=== PATIENT | male | born 1975 | race Two or more races ===

== ENCOUNTER 2023-05-25 17:20 | Emergency (ER) | payer SELFPAY ==
[~2023-05-25] VITALS: Ht 170.2 cm; Wt 86.3 kg
[2023-05-25] MEDS ORDERED: SODIUM CHLORIDE 0.9% 1,000 ML IVB ONE (17:45)
[2023-05-25 17:58] VITALS: BP 112/77; PULSE 104; RESP 18; O2SAT 98
[2023-05-25 18:24] LABS: Basophils # (auto) 0 10 ^3/uL (0-0.2); Basophils % (auto) 0.2 % (0.0-2.0); Eosinophils # (auto) 0 10 ^3/uL (0-0.8); Lymphocytes # (auto) 0.5 10 ^3/uL (0.4-5.4); Monocytes # (auto) 1.5 10 ^3/uL (0-1.3)
[2023-05-25 18:26] LABS: Eosinophils % (auto) 0.1 % (0.0-7.0); Hematocrit 51.5 % (41.0-53.0); Hemoglobin 17.6 g/dL (13.5-17.5); Lymphocytes % (auto) 3.8 % (10.0-50.0); Mean Corpuscular Hemoglobin 33.2 pg (28.0-32.0); Mean Corpuscular Hgb Conc. 34.2 g/dL (32.0-36.0); Monocytes % (auto) 10.7 % (0.0-12.0); Neutrophils % (auto) 85.2 % (37.0-80.0); Red Blood Cells 5.31 10^6/uL (4.5-5.90); Red Cell Distribution Width 13.3 % (11.8-14.3); White Blood Cell 14.1 10^3/uL (4.4-10.8)
[2023-05-25 18:31] LABS: Chloride 109 mmol/L (98-107); Magnesium 2.6 mg/dL (1.6-2.6); Potassium 5.4 mmol/L (3.5-5.1); Sodium 141 mmol/L (136-145)
[2023-05-25 18:34] LABS: Alanine Aminotransferase 28 U/L (16-61); Aspartate Aminotransferase 23 U/L (15-37); GFR African American 30 mL/min; GFR Non-African American 24 mL/min; Total Protein 7.8 g/dL (6.4-8.2)
[2023-05-25 18:38] LABS: Lactic Acid w/Reflex 2.2 mmol/L (0.4-2.0)
[2023-05-25 18:41] LABS: INR 0.98 (0.9-1.15); Prothrombin Time 10.3 sec (9.3-11.8)
[2023-05-25 18:51] LABS: Anion Gap 9 (5-15); Carbon Dioxide 23 mmol/L (21-32)
[2023-05-25 18:52] LABS: Albumin 4.6 g/dL (3.4-5.0); Alkaline Phosphatase 59 U/L (45-117); BUN/Creatinine Ratio 7.5 (10.0-20.0); Bilirubin, Total 0.7 mg/dL (0.2-1.0); Blood Alcohol < 3.0 mg/dL (<10); Blood Urea Nitrogen 22 mg/dL (7-18); Calcium 9.8 mg/dL (8.5-10.1); Creatine Kinase IFCC 187 U/L (39-308); Glucose 113 mg/dL (74-106)
== END 2023-05-25 19:01 | disposition left against medical advice (07) ==
LOC: EDBD 17:20 → ER 17:20
DX: R55 Syncope and collapse (principal); R11.0 Nausea; Z53.21 Procedure and treatment not carried out due to patient leaving prior to being seen by health care provider
CPT/HCPCS: 36415; 70450; 71045; 80053; 80320; 82550; 83605; 83735; 84484; 85025; 85379; 85610; 85730; 87040; 93005